=== PATIENT | female | born 1940 | race Caucasian/White ===

== ENCOUNTER → 2023-07-30 14:41 | Outpatient (REF) | payer OTHER, SELFPAY | LOC: WDC 14:41 | PROVIDERS: ATTENDING PHYSICIAN Internal Medicine | DX: Z12.31 Encounter for screening mammogram for malignant neoplasm of breast (principal) | CPT/HCPCS: 77063; 77067 ==

== ENCOUNTER → 2024-02-10 12:36 | Outpatient (REF) | payer OTHER, SELFPAY | LOC: RCS 12:36 | PROVIDERS: ATTENDING PHYSICIAN Internal Medicine Cardiovascular Disease; FAMILY PHYSICIAN Internal Medicine | DX: Z98.890 Other specified postprocedural states (principal) | CPT/HCPCS: 93306 ==

== ENCOUNTER 2024-02-22 12:18 | Emergency (ER) | payer OTHER, SELFPAY ==
[2024-02-22 12:24] VITALS: BP 157/70
[2024-02-22 12:50] LABS: % Basophils 0.9 % (0-2); % Eosinophils 2.6 % (0-6); % Immature Granulocytes 0.4 % (0-0.5); % Lymphocytes 25.8 % (20.5-51.1); % Monocytes 8.1 % (1.7-9.3); % Neutrophils 62.2 % (42.2-75.2); Absolute Basophils 0.1 10^3/uL (0-0.2); Absolute Eosinophils 0.1 10^3/uL (0-0.7); Absolute Lymphocytes 1.4 10^3/uL (1.2-3.4); Absolute Monocytes 0.4 10^3/uL (0.1-0.6); Absolute Neutrophils 3.3 10^3/uL (1.4-6.5); Hematocrit 34.9 % (37.0-47.0); Hemoglobin 12.1 g/dL (12.0-16.0); Mean Corp Hgb Conc. 34.7 g/dL (33.0-37.0); Mean Corpuscular Volume 95.1 fL (81.0-99.0); Mean Platelet Volume 9.2 fL (7.4-10.4); Nucleated Red Blood Cells % 0 %; Platelet Count 217 10^3/uL (130-400); Red Blood Cell Count 3.67 10^6/uL (4.20-5.40); Red Cell Dist. Width 13.2 % (11.5-14.5); White Blood Cell Count 5.3 10^3/uL (4.8-10.8)
[2024-02-22 13:07] LABS: ALT (SGPT) 26 U/L (0-35); AST (SGOT) 41 U/L (14-36); Albumin 4.5 g/dl (3.5-5.0); Alkaline Phosphatase 85 U/L (38-126); Blood Urea Nitrogen 18 mg/dl (7-17); Calcium 10.1 mg/dl (8.4-10.2); Carbon Dioxide 24 mmol/L (22-30); Chloride 105 mmol/L (98-107); Glucose 92 mg/dl (70-99); Lipase 217 U/L (23-300); Potassium 4.6 mmol/L (3.5-5.1); Sodium 140 mmol/L (135-145); Total Bilirubin 0.5 mg/dl (0.2-1.3); Total Protein 6.6 g/dl (6.3-8.2); eGFR > 60.00
--- NOTE | 2024-02-22 13:14 | ED.GENMED ---
History of Present Illness
General
Chief Complaint: Abdominal Pain
Time Seen by Provider: 02/22/24 13:10
History of Present Illness
History of Present Illness:
83-year-old female with history of mitral valve replacement presenting to the emergency department for lower abdominal pain. Patient reports for the past week she has been having some discomfort to the right lower quadrant with soft stools. Also
notes low-grade fevers. Reports history of appendectomy and cholecystectomy. Denies any blood in the stool. Denies chest pain or difficulty breathing. Denies urinary complaints. Denies any unusual foods. Denies any known sick contacts. Denies
additional acute medical complaints
Past History
Past History
ED Past Medical History: Cancer (Breast cancer and B-cell lymphoma ), GERD, Valvular disease and Other (MVP, history of eye lymphoma treated in remission, history of left breast cancer status post lumpectomy, chemotherapy, radiation in 1984 also in
remission, depression)
ED Past Surgical History: Appendectomy, Cholecystectomy, Gynecological and Orthopedic
Social History
Tobacco: Non-smoker
Alcohol: None
Drug: None
Personal:
Living: with family
Employment: Retired
Family History
Family History: Other (Noncontributory ); Negative CAD
Phy Exam
Physical Exam
Physical Exam:
General: Well-appearing, no clinical signs of dehydration, nontoxic and in no acute distress
HEENT: protecting airway
Neck: appears supple
CV: Normal heart rate, regular rhythm, no evidence of cyanosis
Resp: No accessory muscle use, no increased work of breathing, lungs clear to auscultation bilaterally
Abd: Soft and non-distended, mild tenderness to the right lower quadrant without rebound or guarding
Extremities: No deformities, no swelling, no erythema, pulses and sensation intact
Neuro: alert, no focal neurologic deficit
: deferred
Rectal: deferred
Psych: Normal affect
Skin: Intact
Course
Orders/Labs/Results
Orders:
Orders
02/22/24 12:35
Complete Blood Count/With Diff Urgent
Comprehensive Metabolic Panel Urgent
Lipase Urgent
02/22/24 13:31
CT Abd/pel W Iv And Oral Contr Urgent
Comment:
Reason For Exam: RLQ pain/diarrhea, hx appendectomy and cholecystec
Iohexol [Omnipaque] See Protocol PO NOW STA
02/22/24 15:20
Urinalysis Reflex To Culture Urgent
Date Specimen was Collected: 02/22/24
Time Specimen was Collected: 15:15
Abnormal Lab Results
02/22/24
12:35
RBC 3.67 L 10^6/uL
(4.20-5.40)
Hct 34.9 L %
(37.0-47.0)
MCH 33.0 H pg
(27.0-31.0)
BUN 18 H mg/dl
(7-17)
AST 41 H U/L
(14-36)
02/22/24 12:35
02/22/24 12:35
Vital Signs
Initial and Last Documented VS:
Initial Vital Signs
Temp Pulse Resp BP Pulse Ox
97.5 F 62 18 157/70 100
02/22/24 12:24 02/22/24 12:24 02/22/24 12:24 02/22/24 12:24 02/22/24 12:24
Last Documented Vital Signs
Temp Pulse Resp BP Pulse Ox
97.5 F 56 20 160/63 99
02/22/24 12:24 02/22/24 15:45 02/22/24 15:45 02/22/24 15:00 02/22/24 14:15
MDM/Problems Addressed
MDM/Problems Addressed:
83-year-old female presenting to the emergency department with right lower abdominal pain and soft stools. Vital signs on arrival are significant for mild hypertension.
On exam, patient is well-appearing, no acute distress or discomfort. Overall benign abdominal exam with mild tenderness to the right lower quadrant without rebound or guarding. Lower suspicion for appendicitis, given history of appendectomy in the
past. Suspect possible GI issue such as diverticulitis versus enteritis. Given duration of symptoms, will obtain CT abdominal imaging. Patient had laboratory analysis prior to my assessment, unremarkable without leukocytosis, normal lipase. Will
also send urinalysis.
17:40 -CT negative for acute pathology. Patient is concerned regarding her symptoms. Given duration, will start on short course of antibiotics, however advise close outpatient primary care follow-up. Strict return precautions communicated patient
verbalized understanding
*Critical Care Note
Total Time (30-74mins, 75-104mins- exclusive of procedures): Not Applicable
ED Attending Note
-
Portions of this chart may have been created with voice recognition software.� Occasional wrong word or��sound alike� substitutions may have occurred due to the inherent limitations of voice recognition software.
Discharge Plan
Departure
Prescriptions:
No Action
sertraline 100 MG tablet
100 mg PO DAILY
famotidine [Pepcid] 40 MG tablet
40 mg PO PRN PRN (Reason: additional rx for reflux)
cyanocobalamin (vitamin B-12) 1,000 MCG tablet
100 mcg PO DAILY
diazepam 5 MG tablet
5 mg PO PRN PRN (Reason: anxiety)
esomeprazole magnesium [Nexium 24HR] 20 MG capsule,delayed release(DR/EC)
20 mg PO DAILY
femwzuwi-gbg-wrui-FA-vit K-lut [Centrum Silver Women] 1 EACH tablet
1 ea PO DAILY
Referrals:
Cindy Serrano MD [Family Provider] -
Interventions
Interventions:
*Risk Screen - Suicide Last Done: 02/22/24 12:20
*General Assessment Last Done: 02/22/24 13:23
*Neglect/Abuse Screening Last Done: 02/22/24 13:23
ED- Fall Risk Assessment Last Done: 02/22/24 13:21
*ED COVID-19 Vaccine History Last Done: 02/22/24 13:23
GL-Bdpfwo-Mvdmelquss Assessment Last Done: 02/22/24 13:21
Discharge Date and Time
Print Language: ESTONIAN
[2024-02-22 13:35] VITALS: BP 141/65
[2024-02-22] MEDS: OMNIPAQUE 50 ML PO (13:37)
[2024-02-22 13:40] VITALS: BMI 24.7
[2024-02-22 14:00] VITALS: BP 146/63
[2024-02-22 15:00] VITALS: BP 160/63
[2024-02-22 15:35] LABS: Urine Albumin Negative (Neg - Trace); Urine Bilirubin Negative (Negative); Urine Character Clear (Clear); Urine Color Yellow; Urine Glucose Negative (Negative); Urine Ketone Negative (Negative); Urine Leukocyte Negative (Negative); Urine Nitrite Negative (Negative); Urine Occult Blood Negative (Negative); Urine Urobilinogen Negative (Neg - 1+)
[2024-02-22 18:07] VITALS: BP 138/79
== END 2024-02-22 18:08 | disposition home or self-care (01) ==
LOC: EMR 12:18
PROVIDERS: Emergency Medicine; EMERGENCY PHYSICIAN Student in an Organized Health Care Education/Training Program; FAMILY PHYSICIAN Internal Medicine
DX: R10.31 Right lower quadrant pain (principal); K21.9 Gastro-esophageal reflux disease without esophagitis; I38 Endocarditis, valve unspecified
CPT/HCPCS: 99284; 74177; 80053; 81003; 83690; 85025; Q9967

== ENCOUNTER → 2024-09-26 14:02 | Outpatient (REF) | payer OTHER, SELFPAY | LOC: RCS 14:02 | PROVIDERS: ATTENDING PHYSICIAN Internal Medicine Cardiovascular Disease; FAMILY PHYSICIAN Internal Medicine | DX: Z98.890 Other specified postprocedural states (principal); I34.0 Nonrheumatic mitral (valve) insufficiency | CPT/HCPCS: 93306 ==

== ENCOUNTER → 2025-03-13 08:08 | Outpatient (REF) | payer OTHER, SELFPAY | LOC: RAD 08:08 | PROVIDERS: ATTENDING PHYSICIAN Nurse Practitioner Family; FAMILY PHYSICIAN Internal Medicine | DX: R10.10 Upper abdominal pain, unspecified (principal) | CPT/HCPCS: 76700 ==

== ENCOUNTER → 2025-03-27 09:25 | Outpatient (REF) | payer OTHER, SELFPAY | LOC: RCS 09:25 | PROVIDERS: ATTENDING PHYSICIAN Internal Medicine Cardiovascular Disease; FAMILY PHYSICIAN Internal Medicine | DX: I34.0 Nonrheumatic mitral (valve) insufficiency (principal); Z98.890 Other specified postprocedural states | CPT/HCPCS: 93306 ==